=== PATIENT | female | born 1945 | race Caucasian/White ===

== ENCOUNTER 2020-06-30 14:58 | Observation (INO) | payer MEDICARE, OTHER ==
[~2020-06-30] VITALS: Ht 162.6 cm; Wt 103.2 kg
[2020-06-30 16:13] LABS: BASOPHILS ABSOLUTE AUTO 0.03 K/mm3 (0.00-0.23); BASOPHILS PERCENT AUTO 0 % (0-2); EOSINOPHILS ABSOLUTE AUTO 0.35 K/mm3 (0.00-0.68); EOSINOPHILS PERCENT AUTO 4 % (0-6); Hematocrit 41.2 % (33.0-51.0); Hemoglobin 13.5 g/dL (11.5-16.0); IMMATURE GRAN ABSOLUTE AUTO 0.03 K/mm3 (0.00-0.10); IMMATURE GRAN PERCENT AUTO 0 % (0-1); LYMPHOCYTES ABSOLUTE AUTO 1.34 K/mm3 (0.84-5.20); LYMPHOCYTES PERCENT AUTO 17 % (21-46); MONOCYTES ABSOLUTE AUTO 0.48 K/mm3 (0.16-1.47); MONOCYTES PERCENT AUTO 6 % (4-13); Mean Corpuscular HGB 30.3 pg (26.0-34.0); Mean Corpuscular HGB Conc 32.8 g/dL (31.5-36.5); Mean Corpuscular Volume 93 fL (80-100); Mean Platelet Volume 10.2 fL (9.1-12.4); NEUTROPHILS ABSOLUTE AUTO 5.65 K/mm3 (1.96-9.15); NEUTROPHILS PERCENT AUTO 72 % (41-73); Platelet Count 192 K/mm3 (150-400); RDW Coefficient Variation 13.7 % (11.7-14.2); RDW Standard Deviation 46.3 fL (35.1-46.3); Red Blood Cell Count 4.45 M/mm3 (3.80-5.20); White Blood Cell Count 7.88 K/mm3 (4.00-11.30)
[2020-06-30 16:17] LABS: Troponin I <0.015 ng/mL (0.000-0.040)
[2020-06-30 16:18] LABS: Alanine Aminotransfer (ALT/SGP 373 U/L (12-78); Albumin, Blood 3.8 g/dL (3.4-5.0); Albumin/Globulin Ratio 0.9 (0.8-1.8); Alk Phos 315 U/L (50-136); Anion Gap 5 mmol/L (6-16); Aspartate Aminotrans (AST/SGOT 313 U/L (12-37); Bilirubin, Total 1.2 mg/dL (0.1-1.0); Blood Urea Nitrogen 15 mg/dL (8-24); Bun/Creatinine Ratio 19.4 (12.0-20.0); CO2, Blood 26 mmol/L (21-32); Calcium, Blood 9.7 mg/dL (8.5-10.1); Chloride, Blood 109 mmol/L (98-108); Creatinine, Blood 0.77 mg/dL (0.40-1.00); Globulin, Blood 4.2 g/dL (2.2-4.0); Glomerular Filtration Rate >60 (60-); Glucose, Blood 116 mg/dL (70-99); Potassium, Blood 4.2 mmol/L (3.5-5.5); Sodium, Blood 140 mmol/L (136-145)
[2020-06-30] MEDS ORDERED: FOLI1 PO (16:25)
[2020-06-30] MEDS ORDERED: METTREX2.5 PO (16:25)
[2020-06-30] MEDS ORDERED: GABA300 PO ×3 (16:26→23:26)
[2020-06-30] MEDS ORDERED: FURO20 PO (16:27)
[2020-06-30] MEDS ORDERED: OMEP20ER PO (16:27)
[2020-06-30] MEDS ORDERED: ALLO100 PO (16:30)
[2020-06-30] MEDS ORDERED: MONT4 (16:30)
[2020-06-30] MEDS ORDERED: MONT10T PO (16:36)
[2020-06-30 17:42] LABS: Magnesium, Blood 2.1 mg/dL (1.6-2.4)
--- NOTE | 2020-06-30 22:30 | NUR ---
transfer report from Osiris SMITH on 75 year old Female being admitted OBS status with cholidocholilithis & will be transferred to [facility] for ERCP when bed becomes available. PT had elevated BP in ER neg troponin & BP more normal with 10 mg IV hydralizine. Uses [facility] with room air. Family to bring CPAP. Await admission.
[2020-07-01 05:39] LABS: Alanine Aminotransfer (ALT/SGP 498 U/L (12-78); Albumin, Blood 3.6 g/dL (3.4-5.0); Alk Phos 350 U/L (50-136); Anion Gap 8 mmol/L (6-16); Aspartate Aminotrans (AST/SGOT 541 U/L (12-37); Blood Urea Nitrogen 13 mg/dL (8-24); Bun/Creatinine Ratio 16.4 (12.0-20.0); CO2, Blood 26 mmol/L (21-32); Calcium, Blood 9.3 mg/dL (8.5-10.1); Chloride, Blood 108 mmol/L (98-108); Creatinine, Blood 0.79 mg/dL (0.40-1.00); Globulin, Blood 3.7 g/dL (2.2-4.0); Glomerular Filtration Rate >60 (60-); Glucose, Blood 109 mg/dL (70-99); Potassium, Blood 3.4 mmol/L (3.5-5.5); Sodium, Blood 142 mmol/L (136-145); Total Protein, Blood 7.3 g/dL (6.4-8.2)
--- NOTE | 2020-07-01 05:58 | NUR ---
PT admitted with rachel htn cholelitisis & she had further elevation of her liver enzymes. She denies abd pain & BP 168 systolic this AM. Given IV hydralazine for htn. Used own CPAP all night.
--- NOTE | 2020-07-01 19:31 | NUR ---
COBRA TRANSFER THIS RN GAVE REPORT TO SARAH CUNHA AT [facility] FOR TRANSFER. HYDRALAZINE GIVEN FOR HTN. SEE EMAR. PT TRANSERRED VIA [facility]. BELONGINGS WITH PT.
== END 2020-07-01 18:59 | disposition short-term general hospital (02) ==
LOC: ER 14:58 → MEDS 14:59 → ER 22:33 → MEDS 22:50
PROVIDERS: Emergency Medicine; ADMIT Family Medicine
DX: K80.50 Calculus of bile duct without cholangitis or cholecystitis without obstruction (principal); I10 Essential (primary) hypertension; M10.9 Gout, unspecified; I82.402 Acute embolism and thrombosis of unspecified deep veins of left lower extremity; G62.9 Polyneuropathy, unspecified; K21.9 Gastro-esophageal reflux disease without esophagitis; E87.6 Hypokalemia; J44.9 Chronic obstructive pulmonary disease, unspecified; M06.9 Rheumatoid arthritis, unspecified; Z91.018 Allergy to other foods
CPT/HCPCS: 36415; 71045; 74181; 76705; 80053; 83690; 83735; 84484; 85025; 85379; 93005; 93010; 93970; 94762; 96374; 96375; 99285-25; A9270; J0360; J1650; J2060; J2270; J2405; J3010; J8610

== ENCOUNTER 2021-03-10 08:50 | Day surgery (SDC) | payer MEDICARE, OTHER ==
[~2021-03-10] VITALS: Ht 162.6 cm; Wt 108.0 kg
[~2021-03-10 08:50] MED LIST: ALLO100 PO; ARNUITY ELLIPT50 MCG; Amlodipine Bes2.5 MG PO; FLUT1DIS2 INH; FOLI1 PO; FURO20 PO; GABA300 PO; METTREX2.5 PO; MONT10T PO; MONT4; OMEP20ER PO; TOPROL XL50 MG PO; WATER PILL PO
[2021-03-10] MEDS ORDERED: CHLO25B PO (09:09)
[2021-03-10] MEDS ORDERED: FOLI1 PO (09:11)
[2021-03-10] MEDS ORDERED: GABA100 PO (09:11)
[2021-03-10] MEDS ORDERED: POTASSIUM GLUCO99 M1 PO (09:12)
[2021-03-10] MEDS ORDERED: ALBU8HFA2 INH (09:13)
[2021-03-10] MEDS ORDERED: VITAMIN D31000 UNI1 (09:15)
[2021-03-10] MEDS ORDERED: VITAMIN B COMP0.4 MG PO (09:15)
[2021-03-10] MEDS ORDERED: ACET500 (09:16)
[2021-03-10] MEDS ORDERED: Cyclobenzaprine5 MG PO (09:16)
--- NOTE | 2021-03-10 10:02 | NUR ---
History, Chart, Medications and Allergies reviewed before start of procedure. Lungs clear T/O to Auscultation. Patient confirms NPO status and agrees with scheduled surgery. Pre-Op teaching done. Pt verbalizes understanding. Patient reports completing Chlorhexadine shower X2 prior to admission to hospital. IV ATTEMPTED BY CARLOS RN X 2, HELADIO RN X1, ANGELES RN X 1. THIS RN ATTEMPTED 1 TIME AND THEN WAS FINALLY ABLE TO PLACE A 20 G TO BACK OF R LOWER ARM. PT TOLERATED WELL. PT UP TO VOID WITH STAND BY ASSISTANCE AND BACK TO BED.
--- NOTE | 2021-03-10 15:25 | NUR ---
PT ARRIVED FROM PACU AT 1445. SHE REPORTED PAIN AND WAS PLACED ON 3L NASAL CANULA. ENCOURAGED PT TO GET OOB TO VOID, PT ABLE TO STAND AND TRANSFER WITH 1 ASSIST AFTER WAKING UP. SHE IS CURRENTLY UP IN HER CHAIR REPORTS FEELING BETTER. MEDICATED PER EMAR FOR PAIN. TOLERATING PO WELL AT THIS TIME. DRESSING CDI, POLAR ESAU IN PLACE. CALL LIGHT IN REACH.
--- NOTE | 2021-03-10 16:01 | NUR ---
NO IV ACESS AT THIS TIME, AWAITING PLACEMENT OF NEW IV BEFORE ADMINISTERING TXA.
--- NOTE | 2021-03-10 18:26 | NUR ---
SHIFT SUMMARY S/P LTKA. AQUACEL CDI POLAR ESAU IN PLACE, PT AMBULATES WELL TO RESTROOM. PAIN IS WELL MANAGED PER EMAR AT THIS TIME. CURRENTLY ATTEMPTING TO PLACE PERIPHERAL IV AND AWAITING POST OP MEDICATIONS WITH THAT. TOLERATING PO NO NAUSEA SINCE ARRIVAL. ON ROOM AIR AT THIS TIME SATS >95%. PLAN WILL BE TO WORK WITH THERAPY AND DISCHARGE AT SOME TIME.
[2021-03-11 04:06] LABS: BASOPHILS ABSOLUTE AUTO 0.02 K/mm3 (0.00-0.23); BASOPHILS PERCENT AUTO 0 % (0-2); EOSINOPHILS PERCENT AUTO 0 % (0-6); Hemoglobin 11.8 g/dL (11.5-16.0); IMMATURE GRAN ABSOLUTE AUTO 0.07 K/mm3 (0.00-0.10); IMMATURE GRAN PERCENT AUTO 0 % (0-1); LYMPHOCYTES ABSOLUTE AUTO 0.72 K/mm3 (0.84-5.20); LYMPHOCYTES PERCENT AUTO 5 % (21-46); MONOCYTES ABSOLUTE AUTO 0.87 K/mm3 (0.16-1.47); MONOCYTES PERCENT AUTO 6 % (4-13); Mean Corpuscular HGB 30.8 pg (26.0-34.0); Mean Corpuscular HGB Conc 32.8 g/dL (31.5-36.5); Mean Corpuscular Volume 94 fL (80-100); Mean Platelet Volume 9.6 fL (9.1-12.4); NEUTROPHILS PERCENT AUTO 89 % (41-73); Platelet Count 201 K/mm3 (150-400); RDW Coefficient Variation 14.2 % (11.7-14.2); RDW Standard Deviation 47.6 fL (35.1-46.3); Red Blood Cell Count 3.83 M/mm3 (3.80-5.20); White Blood Cell Count 15.78 K/mm3 (4.00-11.30)
[2021-03-11 04:43] LABS: Bun/Creatinine Ratio 22.9 (12.0-20.0); Calcium, Blood 9.1 mg/dL (8.5-10.1); Creatinine, Blood 1.18 mg/dL (0.40-1.00); Magnesium, Blood 1.9 mg/dL (1.6-2.4); Potassium, Blood 3.6 mmol/L (3.5-5.5)
--- NOTE | 2021-03-11 05:42 | NUR ---
SHIFT SUMMARY POD1 L TKA. VSS. L KNEE WITH AQUACEL DRESSING, ISABELLA WRAPPED (CDI) AND POLAR PACK IN PLACED. VSS. AMBULATES WITH SBA WITH FWW AND GB. TOLERATES PO INTAKE. PT DENIES N/V. ABX ADMINISTERED. POWERGLIDE WAS VERY POSITIONAL. NEW PERIP IV WAS PLACED ON (R) WRIST, IV FLUSHING AND PATENT. PT REPORTS MODERATE PAIN 4-6/10 PAIN LEVEL. PAIN MANAGED WITH SCHEDULED TORADOL AND TYLENOL. PT HAS ALSO BEEN GETTING ARCADIO 10MG. PT AOX4. PT DENIES N/T. CALL LIGHT WITHIN REACH. WILL PROVIDE REPORT TO ONCOMING NURSE. PLAN FOR PT TO WORK WITH THERAPY.
[2021-03-11] MEDS ORDERED: ENOX40I SC (09:56)
[2021-03-11] MEDS ORDERED: ROXICODONE5 MG PO (09:57)
[2021-03-11] MEDS ORDERED: ASPI81CH PO (09:57)
[2021-03-11] MEDS ORDERED: PROM25 PO (09:58)
[2021-03-11] MEDS ORDERED: SULTRIDS PO (09:58)
--- NOTE | 2021-03-11 11:48 | NUR ---
DISCHARGE PT LEFT VIA WHEELCHAIR AT 1130 PT CLEARED THERAPY AND AMBULATES WELL WITH FWW AND GB. FOLLOWING PRECAUTIONS. PAIN WELL CONTROLLED WITH ORAL MEDICATIONS. PT HAS SCRIPTS AT HOME SHE PICKED UP PRIOR TO ARRIVAL AT HOSPITAL. IVS REMOVED.
== END 2021-03-11 11:50 | disposition home or self-care (01) ==
LOC: ORSCMMR 08:50 → ORD 10:00 → SURS 14:10 → ORSCMMR 03-11 11:50
PROVIDERS: Orthopaedic Surgery
PROC: 8E0YXBZ Computer Assisted Procedure of Lower Extremity (ICD-10-PCS; principal; 2021-03-10 10:00)
PROC: 0SRD0J9 Replacement of Left Knee Joint with Synthetic Substitute, Cemented, Open Approach (ICD-10-PCS; principal; 2021-03-10 10:00)
DX: M17.12 Unilateral primary osteoarthritis, left knee (principal); I10 Essential (primary) hypertension; J45.909 Unspecified asthma, uncomplicated; G47.33 Obstructive sleep apnea (adult) (pediatric); E66.01 Morbid (severe) obesity due to excess calories; Z68.41 Body mass index [BMI] 40.0-44.9, adult; Z79.899 Other long term (current) drug therapy
CPT/HCPCS: 36415; 73560-LT; 80048; 83735; 85025; 94640; 94664; 94762; 97110-CQ; 97116-CQ; 97162; 97530; 97530-CQ; A9270; C1713; C1751; C1776; J0171; J0360; J0690; J0735; J1100; J1650; J1885; J2250; J2370; J2405; J2704; J2795; J3010; J3370; J7120

== ENCOUNTER 2021-12-08 08:34 | Day surgery (SDC) | payer MEDICARE, OTHER ==
[~2021-12-08 08:34] MED LIST changes: +ACET500; +ALBU8HFA2 INH; +ASPI81CH PO; +CHLO25B PO; +Cyclobenzaprine5 MG PO; +ENOX40I SC; +GABA100 PO; +POTASSIUM GLUCO99 M1 PO; +PROM25 PO; +ROXICODONE5 MG PO; +SULTRIDS PO; +VITAMIN B COMP0.4 MG PO; +VITAMIN D31000 UNI1
== END 2021-12-21 22:52 | disposition home or self-care (01) ==
LOC: MOI MAM 08:34
DX: D24.2 Benign neoplasm of left breast (principal)
CPT/HCPCS: 19081; 88305; A4648

== ENCOUNTER 2023-01-16 11:31 | Inpatient (IN) | payer MEDICARE, OTHER ==
[2023-01-16] VITALS (16 sets, daily range): BP systolic 126–1478; BP diastolic 61–81
[~2023-01-16] VITALS: Ht 162.6 cm; Wt 115.4 kg
[~2023-01-16 11:31] MED LIST changes: -FLUT1DIS2 INH; +FLUT1DIS5 INH
[2023-01-16 12:13] LABS: BASOPHILS ABSOLUTE AUTO 0.06 K/mm3 (0.00-0.23); BASOPHILS PERCENT AUTO 0 % (0-2); EOSINOPHILS PERCENT AUTO 0 % (0-6); Hematocrit 48.7 % (33.0-51.0); Hemoglobin 16.6 g/dL (11.5-16.0); IMMATURE GRAN PERCENT AUTO 1 % (0-1); LYMPHOCYTES ABSOLUTE AUTO 0.88 K/mm3 (0.84-5.20); LYMPHOCYTES PERCENT AUTO 4 % (21-46); MONOCYTES ABSOLUTE AUTO 0.65 K/mm3 (0.16-1.47); MONOCYTES PERCENT AUTO 3 % (4-13); Mean Corpuscular HGB 30.6 pg (26.0-34.0); Mean Corpuscular HGB Conc 34.1 g/dL (31.5-36.5); Mean Corpuscular Volume 90 fL (80-100); Mean Platelet Volume 10.4 fL (9.1-12.4); NEUTROPHILS ABSOLUTE AUTO 18.78 K/mm3 (1.96-9.15); NEUTROPHILS PERCENT AUTO 92 % (41-73); Platelet Count 348 K/mm3 (150-400); RDW Coefficient Variation 13.7 % (11.7-14.2); RDW Standard Deviation 44.7 fL (35.1-46.3); Red Blood Cell Count 5.42 M/mm3 (3.80-5.20); White Blood Cell Count 20.47 K/mm3 (4.00-11.30)
[2023-01-16 12:49] LABS: International Normalized Ratio 1.01; Prothrombin Time Results 10.6 Sec (9.7-11.5)
[2023-01-16 12:56] LABS: Albumin, Blood 4.6 g/dL (3.4-5.0); Albumin/Globulin Ratio 0.9 (0.8-1.8); Bilirubin, Total 1.4 mg/dL (0.1-1.0); Bun/Creatinine Ratio 18.6 (12.0-20.0); Calcium, Blood 10.3 mg/dL (8.5-10.1); Creatinine, Blood 1.77 mg/dL (0.40-1.00); Potassium, Blood 3.4 mmol/L (3.5-5.5); Total Protein, Blood 9.6 g/dL (6.4-8.2)
--- NOTE | 2023-01-16 19:58 | NUR ---
01/16/231957 Crystal Weston PT RECIEVED 3GRAMS OF ANCEF IVP AT 1920
[2023-01-17] VITALS (8 sets, daily range): BP systolic 99–169; BP diastolic 55–93
--- NOTE | 2023-01-17 02:04 | NUR ---
ARRIVAL TO SURGICAL UNIT. LATE ENTRY. PT ARRIVED TO SURGICAL UNIT VIA HOSPITAL BED. ANNABELLE DRESSING COMPRESSED WITH SCANT SEROSANG DRAINAGE. NG TUBE PRODUCING BROWN OUTPUT AND CONNECTED TO LIS. AMOS DRAIN PRODUCING SEROUSSANG DRAINAGE. PIMENTEL PRODUCING YELLOW URINE, IS BELOW BLADDER LEVEL AND DRAINING, WITH SECURE LOCK IN PLACE. PT ON OXYGEN VIA N/C. PT ORIENTED TO ROOM AND HAS CALL LIGHT IN REACH.
[2023-01-17 04:47] LABS: BASOPHILS ABSOLUTE AUTO 0.04 K/mm3 (0.00-0.23); BASOPHILS PERCENT AUTO 0 % (0-2); EOSINOPHILS PERCENT AUTO 0 % (0-6); Hemoglobin 12.6 g/dL (11.5-16.0); IMMATURE GRAN ABSOLUTE AUTO 0.05 K/mm3 (0.00-0.10); IMMATURE GRAN PERCENT AUTO 0 % (0-1); LYMPHOCYTES PERCENT AUTO 4 % (21-46); MONOCYTES ABSOLUTE AUTO 0.53 K/mm3 (0.16-1.47); MONOCYTES PERCENT AUTO 4 % (4-13); Mean Corpuscular HGB Conc 34.1 g/dL (31.5-36.5); Mean Corpuscular Volume 91 fL (80-100); Mean Platelet Volume 10.7 fL (9.1-12.4); NEUTROPHILS ABSOLUTE AUTO 14.12 K/mm3 (1.96-9.15); NEUTROPHILS PERCENT AUTO 92 % (41-73); Platelet Count 244 K/mm3 (150-400); RDW Coefficient Variation 13.8 % (11.7-14.2); RDW Standard Deviation 45.4 fL (35.1-46.3); Red Blood Cell Count 4.07 M/mm3 (3.80-5.20); White Blood Cell Count 15.34 K/mm3 (4.00-11.30)
[2023-01-17 05:28] LABS: Magnesium, Blood 1.8 mg/dL (1.6-2.4)
[2023-01-17 05:37] LABS: Albumin, Blood 3.1 g/dL (3.4-5.0); Albumin/Globulin Ratio 0.8 (0.8-1.8); Bilirubin, Total 0.7 mg/dL (0.1-1.0); Bun/Creatinine Ratio 26.2 (12.0-20.0); Calcium, Blood 8.4 mg/dL (8.5-10.1); Creatinine, Blood 1.72 mg/dL (0.40-1.00); Globulin, Blood 3.7 g/dL (2.2-4.0); Potassium, Blood 3.5 mmol/L (3.5-5.5); Total Protein, Blood 6.8 g/dL (6.4-8.2)
--- NOTE | 2023-01-17 06:37 | NUR ---
SHIFT SUMMARY NOC. PT POD 1 FOR EX LAP WITH HERNIA REPAIR. PT ANNABELLE DRESSING IS COMPRESSED AND HAS SCANT DRAINAGE PRESENT. NG TUBE PRODUCING OUTPUT AND CONNECTED TO LIS. PIMENTEL BAG IS BELOW BLADDER LEVEL AND PRODUCING YELLOW URINE. AMOS DRAIN INTACT, WITH COMPRESSED WITH SEROSANG DRAINAGE. PT MEDICATED FOR PAIN WITH RELIEF OF SYMPTOMS. PT RESTED WITH CALL LIGHT IN REACH.
--- NOTE | 2023-01-17 17:34 | NUR ---
SHIFT SUMMARY PT HAS DONE WELL TODAY. OOB x 1. DENIES N/V, BUT NOT PASSING GAS; ALTHOUGH REPORTS FEELING "A LOT OF ACTIVITY" IN HER ABD SINCE SUPPOSITORY GIVEN. SHANKAR, AMOS, ANNABELLE, & MARGARITO WNL. MADE PLANS w/ FOR MARGARITO TO BE DC'd TOMORROW MORNING. PT AGREEABLE TO GET UP TO BSC TO TRY TO PAS GAS OR HAVE BM LATER THIS EVENING BUT NOT AT THIS TIME.
[2023-01-18] VITALS (8 sets, daily range): BP systolic 153–187; BP diastolic 71–107
[2023-01-18 04:36] LABS: BASOPHILS ABSOLUTE AUTO 0.04 K/mm3 (0.00-0.23); BASOPHILS PERCENT AUTO 0 % (0-2); EOSINOPHILS ABSOLUTE AUTO 0.38 K/mm3 (0.00-0.68); EOSINOPHILS PERCENT AUTO 4 % (0-6); Hematocrit 36.3 % (33.0-51.0); Hemoglobin 12.1 g/dL (11.5-16.0); IMMATURE GRAN ABSOLUTE AUTO 0.03 K/mm3 (0.00-0.10); IMMATURE GRAN PERCENT AUTO 0 % (0-1); LYMPHOCYTES ABSOLUTE AUTO 1.07 K/mm3 (0.84-5.20); LYMPHOCYTES PERCENT AUTO 12 % (21-46); MONOCYTES ABSOLUTE AUTO 0.73 K/mm3 (0.16-1.47); MONOCYTES PERCENT AUTO 8 % (4-13); Mean Corpuscular HGB 30.9 pg (26.0-34.0); Mean Corpuscular HGB Conc 33.3 g/dL (31.5-36.5); Mean Corpuscular Volume 93 fL (80-100); Mean Platelet Volume 10.3 fL (9.1-12.4); NEUTROPHILS ABSOLUTE AUTO 7.01 K/mm3 (1.96-9.15); NEUTROPHILS PERCENT AUTO 76 % (41-73); Platelet Count 192 K/mm3 (150-400); RDW Coefficient Variation 13.9 % (11.7-14.2); RDW Standard Deviation 46.6 fL (35.1-46.3); Red Blood Cell Count 3.91 M/mm3 (3.80-5.20); White Blood Cell Count 9.26 K/mm3 (4.00-11.30)
--- NOTE | 2023-01-18 04:38 | NUR ---
SHIFT SUMMARY PT HAS RESTED OFF AND ON T/O THE NIGHT. PT REPORTS DISCOMFORT IN HER SHOULDERS AND BACK THIS SHIFT, AND HAS HAD A HARD TIME GETTING TO SLEEP. PT ALSO STILL REPORTING SOME ABD PAIN. MEDICATED PER EMAR. NG TUBE IN PLACE WITH GREEN DISCHARGE. ANNABELLE DRESSING C/D/I. BOWEL TONES HYPOACTIVE. PT ON 2L O2, AND IS MAINTAINING SATS. PT HAS BEEN HYPERTENSIVE, MEDS TO BE GIVEN PER EMAR. BED IN LOWEST POSITION, CALL LIGHT WITHIN REACH.
[2023-01-18 05:06] LABS: Albumin, Blood 2.9 g/dL (3.4-5.0); Anion Gap 6 mmol/L (6-16); Blood Urea Nitrogen 30 mg/dL (8-24); Bun/Creatinine Ratio 32.2 (12.0-20.0); CO2, Blood 29 mmol/L (21-32); Calcium, Blood 8.5 mg/dL (8.5-10.1); Chloride, Blood 108 mmol/L (98-108); Creatinine, Blood 0.93 mg/dL (0.40-1.00); Glomerular Filtration Rate 64 (60-); Glucose, Blood 135 mg/dL (70-99); Phosphorus, Blood 1.7 mg/dL (2.5-4.9); Potassium, Blood 3.2 mmol/L (3.5-5.5); Sodium, Blood 143 mmol/L (136-145)
--- NOTE | 2023-01-18 11:00 | NUR ---
IV'S REMOVED FROM L WRIST AND R HAND. BOTH IV'S WERE LEAKING. WNL UPON REMOVAL.
--- NOTE | 2023-01-18 11:51 | NUR ---
CHEST PRESSURE PT STARTED REPORTING CHEST PRESSURE AND SHORTNESS OF BREATH AT APPROXIMATELY 1115. PT HAD REMOVED O2, IT WAS PLACED BACK ON, O2 SATURATION WAS 88-91% ON RA, IMPROVED TO 95% ON 2L O2. RESPIRATORY THERAPY CALLED FOR BREATHING TX, AFTER BREATHING TX PT STILL REPORT CHEST PRESSURE. DR. TAVAREZ NOTIFIED AND ORDERED CHEST XRAY, TROPONIN AND EKG, AWAITING TEST RESULTS AT THIS TIME. DR. TAVAREZ NOTIFIED THAT PT APPEARS 3L OVER IN THE I&OS. VSS EXCEPT FOR ELEVATED BP.
--- NOTE | 2023-01-18 12:14 | NUR ---
CHEST PRESSURE PT REPORTS CHEST PRESSURE IS IMPROVING. AWAITING TEST RESULTS.
--- NOTE | 2023-01-18 16:15 | NUR ---
NG TUBE ADVANCED DR. HILL REQUESTED THAT NG TUBE BE ADVANCED AND LEFT IN PLACE ON LOW INTERMITTENT SUCTION OVERNIGHT. NG TUBE ADVANCED APPROXIMATELY 9CM AND RESISTANCE WAS MET, STOPPED ADVANCING TUBE WHEN RESISTANCE WAS MET AND NG TUBE TAPED IN PLACE. DR. HILL NOTIFIED THAT NG TUBE WAS UNABLE TO BED ADVANCED THE FULL 13-15CM RECOMMENDED SINCE RESISTANCE WAS MET.
--- NOTE | 2023-01-18 16:19 | NUR ---
HTN DR. TAVAREZ NOTIFIED OF BP >180 AND BORDERLINE TACHYCARDIA HR [phone]. PER DR. TAVAREZ ATTEMPT HYDRALAZINE FOR BLOOD PRESSURE AND MONITOR HR.
--- NOTE | 2023-01-18 17:50 | NUR ---
SHIFT SUMMARY PT IS POD#1 EX LAP WITH HERNIA REPAIR. PT HAS BEEN PASSING FLATUS AND HAD A BM THIS EVENING. NG TUBE REMAINS IN R/T CONTINUED ABD DISTENTION. PT HAD ONE EPISODE OF SHORTNESS OF BREATH AND CHEST PRESSURE, IT RESOLVED AFTER A BREATHING TREATMENT, TROPONIN, EKG AND CHEST XRAY COMPLETED AND DR. TAVAREZ AWARE OF RESULTS. PT HAS BEEN MILTLY TACHY T/O THE DAY. PT RESTING IN BED, CALL LIGHT WITHIN REACH.
--- NOTE | 2023-01-18 22:19 | NUR ---
TACHYCARDIA RACHEL BLAIR CALLED AND NOTIFIED OF PT CONTINUED TACHYCARDIA. TACYCARDIA WAS ALSO ADDRESSED WITH [facility] HOSPITALIST BY DAY RN. HYDRALYZINE DOSE INCREASED BY DR. TAVAREZ BUT NO ADDITIONAL ORDERS FOR HR AND NO TELE ORDER. RACHEL MADE AWARE OF THIS WHEN I SPOKE WITH HIM. PT ASYMPTOMATC AND NOT COMPLAINING OF CHEST AT THIS TIME. NO NEW ORDERS GIVEN. RACHEL STATES JUST WATCH FOR NOW. HE STATES IF HER SBP IS GREATER THAN 180 AND SHE IS NEEDING SOMETHING FOR BLOOD PRESSURE TO NOTIFY PROVIDER AND MEDS WILL BE ADJUSTED AT THAT TIME. HE STATES HYDRALYZINE MAY BE THE CAUSE FOR HER TACYCARDIA, HE DID NOT DISCONTINUE HYDRALYZINE.
[2023-01-19 03:49] VITALS: BP 177/77
[2023-01-19 05:29] VITALS: BP 175/83
--- NOTE | 2023-01-19 05:42 | NUR ---
HYPERTENSION PT HYPERTENSIVE THIS AM, SPOKE WTH RACHEL BLAIR NP AT THE START OF THE SHIFT. REGARDING HR AND BLOOD PRESSURE. PROVIDER IS AWARE OF HTN AND NO TREATMENT FOR BLOOD PRESSURE UNTIL SBP ABOVE 180.
--- NOTE | 2023-01-19 06:21 | NUR ---
SHIFT SUMMARY NOC. PT MEDICATED FOR PAIN WITH RELIEF THIS SHIFT. PT NG TUBE PRODUCING OUTPUT. PIMENTEL BELOW BLADDER AND PRODUCING YELLOW URINE. AMOS DRAIN HAS SEROUSANG DRAINAGE. PT'S BLOOD PRESSURE ELEVATED BUT BELOW PARAMETERS FOR PRN HYDRALAZINE. PT RESTED WITH CALL LIGHT IN REACH.
[2023-01-19 06:29] LABS: Bun/Creatinine Ratio 20.1 (12.0-20.0); Calcium, Blood 8.6 mg/dL (8.5-10.1); Creatinine, Blood 0.75 mg/dL (0.40-1.00); Magnesium, Blood 1.8 mg/dL (1.6-2.4); Potassium, Blood 3.1 mmol/L (3.5-5.5)
[2023-01-19 07:42] VITALS: BP 179/81
--- NOTE | 2023-01-19 11:17 | NUR ---
DR. HILL ROUNDED ON PT AND REMOVED NG TUBE, PT TOLERATED WELL. WILL START CLEAR LIQUID DIET. DR. TAVAREZ NOTIFIED THAT NG TUBE WAS REMOVED.
[2023-01-19 11:58] VITALS: BP 169/85
[2023-01-19 16:50] VITALS: BP 175/84
--- NOTE | 2023-01-19 19:51 | NUR ---
SHIFT SUMMARY PT IS POD#2 FROM EX LAP WITH HERNIA REPAIR. NG TUBE HAS BEEN REMOVED, PT IS TOLERATING CLEAR LIQUIDS AND HAVING BOWEL MOVEMENTS. PIMENTEL OUT, PT HAS VOIDED. PAIN MANAGED WITH PO PAIN MEDICATION. REPORT GIVEN TO MCKENZIE SMITH.
[2023-01-19 19:57] VITALS: BP 171/85
[2023-01-20 00:38] VITALS: BP 153/68
[2023-01-20 04:30] VITALS: BP 174/82
[2023-01-20 04:50] LABS: BASOPHILS ABSOLUTE AUTO 0.05 K/mm3 (0.00-0.23); BASOPHILS PERCENT AUTO 1 % (0-2); EOSINOPHILS ABSOLUTE AUTO 0.65 K/mm3 (0.00-0.68); EOSINOPHILS PERCENT AUTO 7 % (0-6); Hematocrit 35.6 % (33.0-51.0); Hemoglobin 11.9 g/dL (11.5-16.0); IMMATURE GRAN PERCENT AUTO 1 % (0-1); LYMPHOCYTES ABSOLUTE AUTO 1.93 K/mm3 (0.84-5.20); LYMPHOCYTES PERCENT AUTO 20 % (21-46); MONOCYTES ABSOLUTE AUTO 0.72 K/mm3 (0.16-1.47); MONOCYTES PERCENT AUTO 7 % (4-13); Mean Corpuscular HGB 30.9 pg (26.0-34.0); Mean Corpuscular HGB Conc 33.4 g/dL (31.5-36.5); Mean Corpuscular Volume 93 fL (80-100); Mean Platelet Volume 10.3 fL (9.1-12.4); NEUTROPHILS ABSOLUTE AUTO 6.28 K/mm3 (1.96-9.15); NEUTROPHILS PERCENT AUTO 65 % (41-73); Platelet Count 215 K/mm3 (150-400); RDW Coefficient Variation 13.9 % (11.7-14.2); RDW Standard Deviation 46.8 fL (35.1-46.3); Red Blood Cell Count 3.85 M/mm3 (3.80-5.20); White Blood Cell Count 9.73 K/mm3 (4.00-11.30)
[2023-01-20 05:38] LABS: Anion Gap 6 mmol/L (6-16); Blood Urea Nitrogen 11 mg/dL (8-24); Bun/Creatinine Ratio 14.8 (12.0-20.0); CO2, Blood 27 mmol/L (21-32); Calcium, Blood 8.9 mg/dL (8.5-10.1); Chloride, Blood 106 mmol/L (98-108); Creatinine, Blood 0.74 mg/dL (0.40-1.00); Glomerular Filtration Rate 84 (60-); Glucose, Blood 110 mg/dL (70-99); Magnesium, Blood 1.6 mg/dL (1.6-2.4); Phosphorus, Blood 1.6 mg/dL (2.5-4.9); Sodium, Blood 139 mmol/L (136-145)
--- NOTE | 2023-01-20 06:53 | NUR ---
SHIFT SUMMARY PT IS POD#4 FOR A REPAIR OF AN INCARCERATED VENTRAL HERNIA. PT HAD 6 BM'S YESTERDAY, BUT NONE THIS SHIFT. PT IS ABLE TO TURN AND PIVOT TO THE BEDSIDE COMMODE WITH A FWW. PT'S PAIN WELL CONTROLLED PER EMAR. ANNABELLE IS WORKING PROPERLY AND THE PT'S BANDAGES ON HER ABDOMEN HAVE NO NEW DRAINAGE. PT'S BP WAS ELEVATED A COUPLE OF TIMES THROUGHOUT THE NIGHT. NO PRN'S GIVEN DURING THE SHIFT, BUT PT MAY NEED OTHER PO MEDS ORDERED IF PT IS TO STAY ANOTHER DAY.
[2023-01-20 07:14] VITALS: BP 169/98
[2023-01-20 15:25] VITALS: BP 175/78
--- NOTE | 2023-01-20 17:29 | NUR ---
PT COMPLAINING OF SOB TODAY WITH "CHEST TIGHTNESS" MORE SOB WITH EXERTION. . DENIES CP, LUNGS ARE CLEAR THROUGHOUT AND PT HAS MAINTAINED ABOVE 94% SP02 ON RA. CONTINIOUS BI OX IN PLACE. RT GAVE ALBUTEROL TX X3 AND PT REPORTS IT HELPS TO RELIEVE SOB. PT SAYS SHE HAS NOT FELT THIS SOB BEFORE. DR. TAVAREZ NOTIFIED OF THE ABOVE. SEE NEW ORDER FOR PO LASIX
--- NOTE | 2023-01-20 17:35 | NUR ---
SUMMARY: PT IS POD4 INCARCERATED VENTRAL HERNIA REPAIR. A/O, VSS. SURGICAL SITE WNL AT ABD, MINIMAL SS OUTPUT FROM AMOS. DIET ADVANCED TO REGULAR TODAY, AND PT TOLERATED WELL. UP TO CHAIR X2 TODAY AND UP TO BSC FREQUENTLY. PT HAD 2 SOFT BM'S AND IS VOIDING. NO ACUTE CONCERNS AT THIS TIME.
--- NOTE | 2023-01-20 18:27 | NUR ---
PT CONTINUES TO HAVE HTN TONIGHT. DR. HILL NOTIFIED, OK TO RESTART NORVASC TONIGHT. SEE NEW ORDER
[2023-01-20 20:12] VITALS: BP 157/74
[2023-01-21 03:19] VITALS: BP 162/77
[2023-01-21 05:56] LABS: Hematocrit 34.9 % (33.0-51.0); Hemoglobin 11.7 g/dL (11.5-16.0); Mean Corpuscular HGB 30.8 pg (26.0-34.0); Mean Corpuscular HGB Conc 33.5 g/dL (31.5-36.5); Mean Corpuscular Volume 92 fL (80-100); Mean Platelet Volume 10.4 fL (9.1-12.4); Platelet Count 202 K/mm3 (150-400); RDW Coefficient Variation 13.7 % (11.7-14.2); RDW Standard Deviation 46.2 fL (35.1-46.3); White Blood Cell Count 9.41 K/mm3 (4.00-11.30)
--- NOTE | 2023-01-21 06:27 | NUR ---
SHIFT SUMMARY PT IS POD#5 FOR A REPAIR OF AN INCARCERATED VERTRAL HERNIA. PT IS ABLE TO AMBULATE TO THE BATHROOM WITHOUT ASSISTANCE. VITAL SIGNS HAVE BEEN STABLE THROUGHOUT THE SHIFT, BUT PT STATES SHE FEELS SHORT OF BREATH, EVEN WITH HER OXYGEN SATURATION BEING IN THE 90'S. NO ACUTE EVENTS THIS SHIFT. BED IS IN LOWEST POSITION, CALL LIGHT IS WITHIN REACH.
[2023-01-21 06:53] LABS: Bun/Creatinine Ratio 11.7 (12.0-20.0); Calcium, Blood 9.2 mg/dL (8.5-10.1); Creatinine, Blood 0.77 mg/dL (0.40-1.00); Potassium, Blood 2.9 mmol/L (3.5-5.5)
[2023-01-21 07:27] VITALS: BP 152/74
[2023-01-21 14:53] VITALS: BP 162/73
--- NOTE | 2023-01-21 16:32 | NUR ---
SHIFT SUMMARY POD 5 HERNIA REPAIR. PT HAS REPORTED PAIN WELL CONTROLLED DURING SHIFT. UP TO CHAIR INDEPENDENTLY DURING SHIFT. TOLERATING DIET WELL, NO NAUSEA OR INCREASED PAIN. MINIMAL OUTPUT IN AMOS DRAIN DURING SHIFT. ANNABELLE REMAINS COMPRESSED. PLAN IS TO REMOVE DRAIN TOMORROW AND POSSIBLY DISCHARGE.
[2023-01-21 19:35] VITALS: BP 165/80
[2023-01-22 04:39] VITALS: BP 172/82
--- NOTE | 2023-01-22 05:00 | NUR ---
SHIFT SUMMARY POD6 INCARCERATED HERNIA REPAIR. MIDLINE PICCO IS C/D/I. SCANT AMOS OUTPOUT, SS. SITE REMAINS C./D/I. VSS, PT SLEPT ON AND OFF T/O THE NIGHT. MEDICATED FOR PAIN RELATED TO BACK AND NECK DISCOMFORT, PT REPORTS A SORE ABD BUT THAT IT IS TOLLERABLE. PT PASSING FLATTUS AND TOLLERATING PO INTAKE W/O N/V. NO BM'S NOTED. PT VOIDING W/O DIFFICULTY. NO ACUTE EVENTS NOTED T/P THE NIGHT. PLAN FOR POSSIBLE D/C TODAY.
[2023-01-22 06:02] LABS: BASOPHILS ABSOLUTE AUTO 0.03 K/mm3 (0.00-0.23); BASOPHILS PERCENT AUTO 0 % (0-2); EOSINOPHILS ABSOLUTE AUTO 0.55 K/mm3 (0.00-0.68); EOSINOPHILS PERCENT AUTO 6 % (0-6); Hematocrit 34.6 % (33.0-51.0); Hemoglobin 11.5 g/dL (11.5-16.0); IMMATURE GRAN ABSOLUTE AUTO 0.11 K/mm3 (0.00-0.10); IMMATURE GRAN PERCENT AUTO 1 % (0-1); LYMPHOCYTES ABSOLUTE AUTO 2.01 K/mm3 (0.84-5.20); LYMPHOCYTES PERCENT AUTO 22 % (21-46); MONOCYTES ABSOLUTE AUTO 0.61 K/mm3 (0.16-1.47); MONOCYTES PERCENT AUTO 7 % (4-13); Mean Corpuscular HGB 30.5 pg (26.0-34.0); Mean Corpuscular HGB Conc 33.2 g/dL (31.5-36.5); Mean Corpuscular Volume 92 fL (80-100); NEUTROPHILS ABSOLUTE AUTO 5.82 K/mm3 (1.96-9.15); NEUTROPHILS PERCENT AUTO 64 % (41-73); Platelet Count 210 K/mm3 (150-400); RDW Coefficient Variation 13.8 % (11.7-14.2); RDW Standard Deviation 46.5 fL (35.1-46.3); Red Blood Cell Count 3.77 M/mm3 (3.80-5.20); White Blood Cell Count 9.13 K/mm3 (4.00-11.30)
[2023-01-22 06:29] LABS: Bun/Creatinine Ratio 10.9 (12.0-20.0); Creatinine, Blood 0.82 mg/dL (0.40-1.00); Potassium, Blood 2.7 mmol/L (3.5-5.5)
[2023-01-22 08:52] VITALS: BP 181/77
[2023-01-22] MEDS ORDERED: DOCUZEN 8.6-501 EACH PO (10:34)
[2023-01-22] MEDS ORDERED: HYDR1TAB94 PO (10:35)
--- NOTE | 2023-01-22 11:02 | NUR ---
DISCHARGE POD 6 VENTRAL HERNIA REPAIR. PT PASSING GAS, HAD BOWEL MOVEMENT. PT REPORTS PAIN WELL CONTROLLED. INDEPENDANT IN ROOM, AMBULATING WELL. INCISIONS CDI. ALL INSTRUCTIONS GONE OVER WITH PATIENT, NO FURTHER QUESTIONS AT THIS TIME. CURRENTLY AWAITING RIDE. ALL BELONGINGS WITH PATIENT.
== END 2023-01-22 12:57 | disposition home or self-care (01) | DRG 354 ==
LOC: ER 11:31 → SURS 20:10
PROVIDERS: Family Medicine; Hospitalist; Internal Medicine; Nurse Practitioner Acute Care; Physician Assistant; Surgery; ADMIT Internal Medicine
PROC: 3E033XZ Introduction of Vasopressor into Peripheral Vein, Percutaneous Approach (ICD-10-PCS; 2023-01-16)
PROC: 0WQF0ZZ Repair Abdominal Wall, Open Approach (ICD-10-PCS; principal; 2023-01-16 09:00)
PROC: 5A09357 Assistance with Respiratory Ventilation, Less than 24 Consecutive Hours, Continuous Positive Airway Pressure (ICD-10-PCS; 2023-01-22)
DX: K43.6 Other and unspecified ventral hernia with obstruction, without gangrene (principal); K56.609 Unspecified intestinal obstruction, unspecified as to partial versus complete obstruction; N17.9 Acute kidney failure, unspecified; Z68.41 Body mass index [BMI] 40.0-44.9, adult; R65.10 Systemic inflammatory response syndrome (SIRS) of non-infectious origin without acute organ dysfunction; G47.33 Obstructive sleep apnea (adult) (pediatric); I10 Essential (primary) hypertension; G62.9 Polyneuropathy, unspecified; E66.01 Morbid (severe) obesity due to excess calories; M10.9 Gout, unspecified; E87.6 Hypokalemia; K21.9 Gastro-esophageal reflux disease without esophagitis; J44.9 Chronic obstructive pulmonary disease, unspecified; M06.9 Rheumatoid arthritis, unspecified; M54.2 Cervicalgia; G89.29 Other chronic pain; Z96.652 Presence of left artificial knee joint; Z91.018 Allergy to other foods; Z79.899 Other long term (current) drug therapy; Z79.82 Long term (current) use of aspirin; Z79.891 Long term (current) use of opiate analgesic; Z98.890 Other specified postprocedural states; Z90.710 Acquired absence of both cervix and uterus
CPT/HCPCS: 36415; 71045; 74177; 80048; 80053; 80069; 83735; 84484; 85025; 85027; 85610; 86850; 86900; 86901; 93005; 93010; 94640; 94660; 94664; 94760; 94762; 96361-59; 96374-59; 96375-59; 99285-25; A9270; C1751; C9113; J0330; J0360; J0690; J1100; J1170; J1650; J1790; J1885; J2405; J2704; J3010; J3480; J7030; J7050; J7060; J7120; Q9967